=== PATIENT | male | born 1955 | race Caucasian/White ===

== ENCOUNTER 2024-10-02 17:50 | Emergency (ER) | payer BC, MEDICARE ==
[2024-10-02] MEDS: Bacitracin Oint 1 GM U/D Packet TOP ONE (18:45)
== END 2024-10-02 19:05 | disposition home or self-care (01) ==
LOC: LB.ED 17:50
DX: T33.521A Superficial frostbite of right hand, initial encounter (principal); Z88.8 Allergy status to other drugs, medicaments and biological substances; Z79.899 Other long term (current) drug therapy; Z79.4 Long term (current) use of insulin; X31.XXXA Exposure to excessive natural cold, initial encounter
CPT/HCPCS: 16020; 99283; 99283-25